=== PATIENT | female | born 2000 | race Caucasian/White ===

== ENCOUNTER 2020-12-04 03:12 | Emergency (ER) | payer OTHER ==
[~2020-12-04] VITALS: Ht 165.1 cm; Wt 86.0 kg
[2020-12-04] MEDS ORDERED: KETOROLAC 30 MG/1 ML ONE (03:56)
[2020-12-04] MEDS ORDERED: DEXAMETHASONE 4 MG/ML, 5ML ONE (03:56)
[2020-12-04] MEDS ORDERED: ONDANSETRON 2MG/ML, 2ML ONE (03:56)
[2020-12-04] MEDS ORDERED: KETOROLAC 30 MG/1 ML IVPush ONE (04:00)
[2020-12-04] MEDS ORDERED: DEXAMETHASONE 4 MG/ML, 1ML IVPush ONE (04:00)
[2020-12-04] MEDS ORDERED: SODIUM CHLORIDE 0.9% 1,000ML IVBOLUS ONE (04:00)
[2020-12-04] MEDS ORDERED: ONDANSETRON 2MG/ML, 2ML IVPush ONE (04:00)
[2020-12-04] MEDS ORDERED: SODIUM CHLORIDE FLUSH 10ML SYR IVF ONE (04:00)
[2020-12-04] MEDS ORDERED: PLEASE ENTER ALLERGIES MC SCH (04:00)
[2020-12-04 04:14] VITALS: BP 102/62
--- NOTE | 2020-12-04 05:19 | NUR ---
Assist RN: discharge instructions given. All questions and concerns addressed. Patient ambulatory with a steady gait. Belongings with patient.
== END 2020-12-04 05:21 | disposition home or self-care (01) ==
LOC: ED 04:48
DX: U07.1 COVID-19 (principal); B34.9 Viral infection, unspecified
CPT/HCPCS: 71045; 96374; 96375; 99284; J1100; J1885; J2405; J7030